=== PATIENT | female | born 1950 | race African-American/Black ===

== ENCOUNTER 2016-11-27 15:19 | Inpatient (IN) | payer MEDICARE, MEDICAID ==
[~2016-11-27] VITALS: Ht 165.1 cm; Wt 83.6 kg
--- NOTE | 2016-11-27 15:00 | NUR ---
RECEIVED TO ROOM [address] AT THIS TIME [address] WALTERS'S OFFICE. BROUGHT UP FROM ADMISSIONS VIA WHEELCHAIR. PT IS ALERT AND ORIENTED X4. PAIN 8/10 GENERALIZED. PT ASSISTED INTO BED AND GOWN PUT ON PT. BED ALARM ON FOR FALL PRECAUTIONS. [place] CIGARETTES TAKEN FROM PT WITH HER PERMISSION AND PLACED IN CASSETTE WITH PT MANAGER STRATEGIC PARTNERSHIPS THEM. PERSONAL BELONGINGS IN PT'S CLOSET SHE REFUSES TO HAVE THEM SENT TO THE [facility]. ID, ALLERGY AND FALL BAND PLACED ON PT WELL NON SKID SOCKS. PROVIDED PT WITH CREAM OF CHICKEN SOUP, SALTINE CRACKERS AND LEMON COUSHATTA SODA. PT STATES MED LIST HASN'T CHANGED SINCE LAST ADMISSION AND SHE DOESN'T KNOW WHEN SHE HAS HAD HER MEDS OR EATEN LAST. SAYS SHE LIVES ALONE AND DOESN'T HAVE HELP. SHE IS VERY WEAK AND UNABLE TO MAKE HER OWN MEALS OR ADMINISTER MEDS PER PT. CALL LIGHT IN REACH, ORIENTED TO ROOM, DOOR OPEN, SRX2 AND BED IN LOWEST POSITION AND LOCKED. WILL CONTINUE WITH PLAN OF CARE.
[~2016-11-27 15:19] MED LIST: AMITIZA24 MCG PO; BUTALB-APAP-CA1 EACH PO; BYSTOLIC5 MG PO; CATAPRES0.2 MG PO; COLACE100 MG PO; HALCION0.25 MG PO; HYDROCHLOROTH12.5 M1 PO; HYDROCODONE-APA1 TAB PO; KLONOPIN0.5 MG PO; LISINOPRIL10 MG PO; NICODERM C1 PATCH .2 TRANSDERM; OXYCONTIN10 MG PO; ROBITUSSIN AC (10 M1 PO; TESSALON PERLE100 MG PO; TYLENOL W/CODEI1 TAB PO; ULTRAM50 MG PO
--- NOTE | 2016-11-27 16:50 | NUR ---
20 GAUGE IV SITED TO LEFT FOREARM X1 ATTEMPT. FLUSHES EASY WITH BRISK BLOOD RETURN PRESENT. SECURED WITH TAPE. WELL TOLERATED.
[2016-11-27 17:06] LABS: MCH 31.3 pg (26.0-34.0); MCHC 31.5 g/dL (31.0-37.0); MCV 99.4 fL (80.0-100.0); MEAN PLATELET VOLUME 10.5 fL (7.4-10.4); RDW 21.3 % (11.5-14.5)
[2016-11-27 17:29] VITALS: BP 149/87
[2016-11-27 17:31] LABS: ANION GAP 9.6 mmol/L (8-16); BILIRUBIN - TOTAL 0.28 mg/dL (0.2-1.3); CARBON DIOXIDE 28.4 mmol/L (21.0-32.0); CREATININE - SERUM 1.5 mg/dL (0.6-1.3); MAGNESIUM - SERUM 1.8 mg/dL (1.8-2.4)
[2016-11-27 18:01] LABS: HEMATOCRIT 16.2 % (36.0-48.0); HEMOGLOBIN 5.1 g/dL (12-16); PLATELET COUNT 27 10x3/uL (130-400); RBC 1.63 10x6/uL (4.00-5.40)
--- NOTE | 2016-11-27 18:30 | NUR ---
SUPPOSITORY ADMINISTERED AT THIS TIME. BRIGHT RED BLOOD NOTED UPON POST ADMINISTRATION. FELT THAT PT DID HAVE HEMMORHOIDS INSIDE OF RECTUM AND PT STATED THAT SHE EXPERIENCES THEM OFTEN. DR HANNA'S ANSWERING SERVICE PAGED, [phone].
--- NOTE | 2016-11-27 18:35 | NUR ---
SPOKE WITH DEVORA RN, DR HANNA'S NURSE ABOUT CRITICAL LABS AND BLOOD PER RECTUM. SHE STATED SHE WOULD LET HIM KNOW. CRITICAL LAB SHEET FILLED OUT AND PLACED IN CHART AND A COPY IN CRITICAL LAB BOOK.
[2016-11-27 18:36] LABS: LYMPHOCYTES 52 % (15-50); MONOCYTES 2 % (2-11); NEUTROPHILS 46 % (40-80); PLATELET ESTIMATE DECREASED; ROULEAUX 1+
[2016-11-27 18:42] VITALS: BP 149/87; BMI 22.5
--- NOTE | 2016-11-27 20:00 | NUR ---
PATIENT PACING AROUND ROOM AND INTO REED. SHE IS AWAKE AND ALERT BUT SEEMS TO BE DISORIENTED TO SITUATION. SHE IS C/O PAIN AT AN 8/10. RR EVEN AND UNLABORED. 0 S/S OF DISTRESS. IV TO LEFT FA PATENT WITH NO REDNESS OR SWELLING. HAVE ASSISTED PATIENT BACK TO BED MULTIPLE TIMES AND EXPLAINED TO HER TO NOT GET UP ALONE BUT SHE CONTINUES TO GET UP WITHOUT ASSISTANCE. B/A ON. WILL CONTINUE TO MONITOR.
[2016-11-27 21:00] VITALS: BP 167/87
--- NOTE | 2016-11-27 22:00 | NUR ---
DR. HANNA IN ROOM SPEAKING WITH PATIENT. HE IS ATTEMPTING TO EXPLAIN TO HER THAT HER ILLNESS IS TERMINAL AND THAT SHE NEEDS TO BE ON HOSPICE, BUT SHE KEEPS CHANGING THE SUBJECT AND ACTING THOUGH SHE DOESN'T COMPREHEND. HE HAS ORDERED 2 UNITS OF BLOOD BUT SHE IS REFUSING. HE ASKED HER IF SHE WOULD LET US TRANSFUSE THEM IN THE MORNING AND SHE SAID "MAYBE." WILL ATTEMPT TO TRANSFUSE AT [address]AN[address]. NIGHTTIME MEDS GIVEN. ZOFRAN GIVEN FOR NAUSEA. NORCO GIVEN FOR PAIN. KLONOPIN GIVEN FOR ANXIETY. ATTEMPTED TO ADMINISTER FLEETS ENEMA PER ORDER BY DR. HANNA, BUT PATIENT STATED SHE WISHED TO DO IT HERSELF. NO OTHER NEEDS AT THIS TIME.
--- NOTE | 2016-11-28 | NUR ---
LAB ATTEMPTING TO DRAW TYPE AND CROSS, BUT PATIENT STATES SHE IS "NOT GETTING BLOOD TONIGHT AND DOES NOT WANT HER BLOD DRAWN TONIGHT." LAB WILL RETRY IN AM.
--- NOTE | 2016-11-28 04:00 | NUR ---
PATIENT SLEEPING WITH NO DISTRESS NOTED. CALL LIGHT WITHIN REACH.
--- NOTE | 2016-11-28 05:12 | NUR ---
PATIENT REFUSING AM LABS.
--- NOTE | 2016-11-28 07:54 | NUR ---
SCHEDULED MEDICAITONS ADMINISTERED AT THIS TIME WELL PRN ZOFRAN 4MG IV FOR PT COMPLAINTS OF NAUSEA. IV TO LEFT FOREARM PATENT. ALERT AND ORIENTED X3. ASSESSMENT PERFORMED PER FLOWSHEET. PT CONTINUES TO REFUSE SCD'S AND ISP. CALL LIGHT IN REACH, SRX2 AND BED IN LOWEST POSITION AND LOCKED. WILL CONTINUE WITH PLAN OF CARE.
[2016-11-28 09:08] VITALS: BP 176/89
--- NOTE | 2016-11-28 10:41 | HP ---
PATIENT: DAVID LEOS MEDICAL RECORD: [id number] ACCOUNT: [id number] LOCATION:[facility] : 49 ADMISSION DATE: 11/27/16 HISTORY AND PHYSICAL EXAMINATION HISTORY OF PRESENT ILLNESS: Ms. Leos is a 66-year-old white female, patient of Dr. Swenson who was admitted from the office today for pain control and dehydration. She states she has not had a drink. She has a history of ____ with Dr. Barajas. She has refused treatment in the past. She was found to be severely anemic. She is admitted to see Dr. Swenson. PAST MEDICAL HISTORY: ____, diabetes and hypertension. PAST SURGICAL HISTORY: Includes a hysterectomy. ALLERGIES OR INTOLERANCES: INCLUDE PENICILLIN, AMLODIPINE, CAFFEINE, DICLOFENAC, NAPROSYN, PREDNISONE AND TEMAZEPAM. HOME MEDICATIONS: Include clonazepam 0.5 mg t.i.d., lisinopril 20 daily, clonidine p.r.n., Halcion 0.25 at bedtime, [place] 10, benzonatate 100 t.i.d., Amitiza 24 b.i.d., HCTZ 25 daily, Fioricet p.r.n. and Bystolic 10 mg a day. FAMILY HISTORY: Noncontributory. SOCIAL HISTORY: She is a smoker, also uses marijuana. She does not drink. REVIEW OF SYSTEMS: Complaint of generalized weakness, decreased appetite and abdominal pain. She has had decreased bowel movements and constipation. She has had decreased urine output. PHYSICAL EXAMINATION: GENERAL: She is pleasant and alert. HEENT: Unremarkable. HEART: Regular. LUNGS: Clear. ABDOMEN: With generalized tenderness, no edema. IMPRESSION: Chronic lymphocytic leukemia, acute myeloid leukemia, diabetes and hypertension. PLAN: Admit, pain control, consult Dr. Barajas and transfuse. See orders for plan. TRANSINT:[id number] Voice Confirmation ID: [id number] DOCUMENT ID: [id number] HISTORY AND PHYSICAL [id number] DAVID LEOS SAMY ESPINOSA DO at 1041 CC: [id number] DICTATION DATE: 11/27/161946 LABORATORY ANIMAL FACILITY SUPERVISOR: 11/27/162151 ADM IN [place] [address] [place] [address]
--- NOTE | 2016-11-28 10:45 | NUR ---
PT REQUESTING PAIN MEDICATION. EXPLAINED THAT IT WAS NOT TIME FOR THE NORCO, BUT SHE DID HAVE DEMEROL AVAILABLE. PT DENIED WANTING DEMEROL AT THIS TIME. CALL LIGHT IN REACH. WILL CONTINUE WITH PLAN OF CARE.
[2016-11-28 11:00] VITALS: Ht 165.1 cm; Wt 83.6 kg
[2016-11-28 12:30] VITALS: BP 155/77
--- NOTE | 2016-11-28 13:02 | NUR ---
PRN NORCO ADMINISTERED AT THIS TIME. LINENS BEING CHANGED BY BRICK CLEANER AT THIS TIME. CALL LIGHT IN REACH, WILL CONTINUE WITH PLAN OF CARE.
[2016-11-28 16:19] VITALS: BP 159/72
--- NOTE | 2016-11-28 19:00 | NUR ---
PATIENT RESTING ON LEFT SIDE. HOB 30 DEGREES. AROUSES TO VOICE. RR EVEN AND UNLABORED. 0 S/S OF DISTRESS. STATES PAIN IS AN 8/10. IV TO LEFT FA PATENT WITH NO REDNESS OR SWELLING. TELEMETRY ON. SRX2. BED LOW. CALL LIGHT WITHIN REACH.
[2016-11-28 21:00] VITALS: BP 168/88
--- NOTE | 2016-11-28 22:45 | NUR ---
ASSESSMENT COMPLETE. NIGHTTIME MEDS GIVEN. NORCO GIVEN FOR PAIN. WILL REASSESS. NO OTHER NEEDS AT THIS TIME.
--- NOTE | 2016-11-28 23:45 | NUR ---
ABOUT TO BEGIN INFUSION OF 1ST UNIT PRBC BUT PREINFUSION TEMP IT 103.1. PAGED DR. HANNA.
[2016-11-29] VITALS (62 sets, daily range): BP systolic 81–174; BP diastolic 51–109
--- NOTE | 2016-11-29 00:15 | NUR ---
STILL HAVE NOT RECEIVED CALL BACK FROM DR. HANNA. RETOOK PATIENT'S TEMP. IT IS NOW 98.3. SHE IS VERY AGITATED THRASHING AROUND THE BED. SHE SAYS SHE "CAN'T CALM DOWN." SHE IS PERSPIRING HEAVILY. RR ARE 45 AND SHE SOUNDS VERY WET. NOTIFIED RESPIRATORY WHO CALLED ICU NURSE.
--- NOTE | 2016-11-29 00:50 | NUR ---
CONSULT CALLED TO DR. QUINTANILLA, NEW ORDERS RECIEVED,
--- NOTE | 2016-11-29 00:55 | NUR ---
PT ARRIVED TO ICU VIA HOSPITAL BED. TEMP 97.8. RR 45. HR 122. BP 163/104. PT RESTLESS. TACHYPENIC; RHONCHI NOTED BILATERALLY IN UPPER LOBES; DIMINSHED BILATERALLY IN LOWER LOBES. SCD PLACED. ON NON-REBREATHER AT 15L. CONFUSED TO TIME. AAO X3. STAGE TWO PRESSURE ULCER ON BUTTOCKS. SCABS/SORES ON BACK.
--- NOTE | 2016-11-29 01:15 | NUR ---
PT RESTLESS AND AGITATED. PULLING AT LINES. PT PULLING NON REBREATHER MASK OFF REPEATEDLY. UNABLE TO COMPREHEND THE IMPORTANCE OF KEEPING LINES INTACT.
--- NOTE | 2016-11-29 01:20 | NUR ---
ATTEMPTED TO CONTACT SON AND SISTER. NO ANSWER.
--- NOTE | 2016-11-29 01:38 | NUR ---
DR REHMAN AT BEDSIDE. PT INTUBATED; SIZE 7.5 AND MEASURES 23 AT THE TEETH. HR 125. BP 138/94.
--- NOTE | 2016-11-29 01:58 | NUR ---
20 GAUGE PIV STARTED IN LEFT FOREARM.
--- NOTE | 2016-11-29 02:10 | NUR ---
20 GAUGE PIV STARTED IN RIGHT FOREARM. OGT PLACED; ASCULTATED PATENTENCY.
--- NOTE | 2016-11-29 02:16 | NUR ---
CASH CATH PLACED. SECURED TO LEFT LEG. URINE CULTURE AND UA COLLECTED. CLEAR YELLOW URINE IN COLLECTION BAG.
--- NOTE | 2016-11-29 02:30 | NUR ---
EMERGENCY BLOOD TRANSFUSION CONSENT OBTAIN FROM DR. MAYES.
--- NOTE | 2016-11-29 02:45 | NUR ---
PRBC STARTED INFUSING.
--- NOTE | 2016-11-29 03:30 | NUR ---
REASSESSMENT COMPLETE. BLOOD INFUSING. PT SEDATED ON VENT. DIFFICULTY WITH PT REMAINING CALM WITH SEDATION. 70MCG/KG/MIN DIPROVAN INFUSING. ATIVAN GIVEN PER ORDERS.
[2016-11-29 04:07] LABS: APPEARANCE HAZY (CLEAR); BILIRUBIN NEGATIVE (NEGATIVE); COLOR YELLOW (YELLOW); GLUCOSE NEGATIVE (NEGATIVE); KETONE NEGATIVE (NEGATIVE); LEUKOCYTE ESTERASE NEGATIVE (NEGATIVE); NITRITE NEGATIVE (NEGATIVE); PROTEIN 2+ mg/dL (NEGATIVE); SPECIFIC GRAVITY 1.015 (1.005-1.020); UROBILINOGEN NORMAL (NORMAL)
[2016-11-29 04:10] LABS: AMORPHOUS SEDIMENT >1+ /lpf (NONE SEEN); BACTERIA MANY /hpf (NONE SEEN); EPITHELIAL CELLS 0-5 /hpf (0-5); GRANULAR CAST 0-5 /lpf (NONE SEEN)
--- NOTE | 2016-11-29 05:30 | NUR ---
PT 02 SAT DECREASED TO 45%, 100% GIVEN AND SATS DID NOT INCREASE. PT BAGGED O2 SAT INCREASED TO 96%. PT PLACED BACK ON MECHANICAL VENT.
--- NOTE | 2016-11-29 07:05 | NUR ---
OGT PLACEMENT VERIFICATION VIA AUSCULATION
[2016-11-29 07:32] LABS: BASOPHILS 2.6 % (0.0-2.0); EOSINOPHILS 0 % (0-7); LYMPHOCYTES 26.3 % (15-50); MCH 29.9 pg (26.0-34.0); MCV 99.5 fL (80.0-100.0); MEAN PLATELET VOLUME 12.2 fL (7.4-10.4); MONOCYTES 2.6 % (2-11); NEUTROPHILS 68.5 % (40-80); RDW 19.6 % (11.5-14.5)
[2016-11-29 07:33] LABS: RBC 2.14 10x6/uL (4.00-5.40)
[2016-11-29 07:34] LABS: HEMATOCRIT 21.3 % (36.0-48.0)
[2016-11-29 07:35] LABS: HEMOGLOBIN 6.4 g/dL (12-16); PLATELET COUNT 18 10x3/uL (130-400); WBC 0.4 10x3/uL (4.8-10.8)
[2016-11-29 07:46] LABS: BILIRUBIN - TOTAL 0.64 mg/dL (0.2-1.3); CALCIUM 9.2 mg/dL (8.5-10.1); CARBON DIOXIDE 18.5 mmol/L (21.0-32.0); CREATININE - SERUM 2.3 mg/dL (0.6-1.3); PROTEIN - SERUM 11.3 g/dL (6.4-8.2)
[2016-11-29 07:47] LABS: ANION GAP 23.5 mmol/L (8-16)
--- NOTE | 2016-11-29 08:05 | NUR ---
PAGED DR NAVA AT THIS TIME.
--- NOTE | 2016-11-29 08:16 | NUR ---
SPOKE WITH DR HANNA TO NOTIFY OF CRITICAL WBC 0.4, H&H 6.4/21.3, AND PLATELET LEVEL OF 18. NOTED NO NEW ORDERS EXCEPT TO SPEAK WITH CASE MANAGEMENT AND TO TRY TO GET IN CONTACT WITH PTS SON TO ALLOW THE SON TO DECIDE A DIRECTION TO TAKE IN PT CARE. AT THIS TIME PT IS A FULL CODE. THERE IS NOT A NUMBER FOR THE SON IN COMPUTER, ONLY A NUMBER FOR PT SISTER VARUN TOLLIVER WHO HAS BEEN CALLED AND VOICEMAILS LEFT LAST SHIFT TO NOTIFY OF PT CHANGES. ALSO AT THIS TIME ATTEMPTED TO FIND PT SONS NUMBER IN PT CELL PHONE BY THIS NURSE OBSERVED BY CASE MANAGEMENT, DID NOT FIND NUMBER; ALSO AT THIS TIME CELL PHONE NOTED TO HAVE A DEATTACHED KEYBOARD. WILL CONTINUE TO ATTEMPT TO CONTACT FAMILY.
--- NOTE | 2016-11-29 08:45 | NUR ---
PATIENT IS ON THE VENT AND UNABLE TO ANSWER QUESTIONS. I HAVE ATTEMPTED TO CONTACT HER SISTER, LIDYA TOLLIVER. THE NUMBER ON FACE SHEET FOR SISTER IS NOT A WORKING NUMBER. ON PREVIOUS ADMIT PHONE NUMBER FOR HER SISTER IS [phone]. I HAVE PHONED THAT NUMBER AND STATES LEAVE MESSAGE FOR LIDYA. I LEFT A MESSAGE TO CONTACT ME IN ICU IN REGARDS TO HER SISTER, DAVID LEOS. I DO NOT HAVE A PHONE NUMBER FOR HER SON, HOWEVER, THE CHARGE NURSE ON CONSULTING PRACTICE DIRECTOR STATES SHE HAD A NUMBER AND LEFT MESSAGES FOR SISTER AND SON. WE HAVE NOT RECEIVED A RETURN T/C AT THIS TIME. CM TO FOLLOW.
--- NOTE | 2016-11-29 10:42 | NUR ---
POTASSIUM LEVEL NOTED AT 3.0, REPLACEMENT ADMIN VIA ELECTROLYTE PROTOCOL, REDRAW SET AT 1400. WILL CONTINUE PLAN OF CARE.
--- NOTE | 2016-11-29 10:43 | NUR ---
NUTRITION MONITORING & EVAL CHART REVIEWED. PT NOW IN ICU ON VENT. WILL START TUBE FEEDS PER MD VOICE ORDER. DIPRIVAN @ 18 CC/HR PROVIDING 475 KCAL PER DAY. 1)PULMOCARE @ 10 CC/HR 2)INCREASE 10 CC/HR Q 8 HOURS TOLERATED TO GOAL RATE 35 CC/HR. 3)60 CC H2O FLUSH Q [address] FOLLOWING
--- NOTE | 2016-11-29 10:56 | NUR ---
PATIENT IS ON THE VENT AND SEDATED. SHE IS NOT ABLE TO ANSWER QUESTIONS AT THIS TIME. WE HAVE ATTEMPTED TO CONTACT HER FAMILY. I PHONED HER SISTER, LIDYA TOLLIVER AND I LEFT A MESSAGE FOR HER TO CALL ME. AT THIS TIME I HAVE NOT HEARD BACK FROM FAMILY.
--- NOTE | 2016-11-29 13:51 | NUR ---
TOTAL BED CHANGE PROVIDED AT THIS TIME. NOTED SOME DARK RED BLOOD FROM PT MOUTH. SUCTIONING PROVIDED, NOTED 15ML BLOOD FROM SUCTION. CHIP AND CASH CARE PROVIDED VIA TOTAL ASSIST X 2. WILL CONTINUE PLAN OF CARE.
--- NOTE | 2016-11-29 13:52 | NUR ---
BP AT THIS TIME 84/55 WITH MAP OF 67. PT HAS NOREPINEPHERINE ORDERED. NOREPINEPHERINE STARTED AT 1MCG AT THIS TIME. WILL CONTINUE TO OBSERVE.
--- NOTE | 2016-11-29 14:33 | NUR ---
NOREPINEPHERINE INCREASED TO 1.5 MCG AT THIS TIME FOR A SYSTOLIC BP OF 88. WILL CONTINUE TO OBSERVE.
--- NOTE | 2016-11-29 15:27 | NUR ---
WE SPOKE WITH PATIENT'S SISTER VARUN TOLLIVER. [phone]. SHE STATES THAT PATIENT'S SON IS NOT AVAILABLE TO COME TALK WITH DR. HANNA. SHE STATES THAT JAZMÍN IS IN THE [facility] AND WILL BE THERE FOR THE NEXT 3 MONTHS. SHE STATES HE IS IN SOME TYPE OF PROGRAM THERE. SHE IS GOING TO CONTACT THE [facility] TO INQUIRE IF HE WOULD BE ABLE TO COME TO THE HOSPITAL TO MEET WITH DR. HANNA OR IF HE WOULD BE ALLOWED TO TALK BY PHONE WITH HIM. SHE STATES SHE WILL CHECK INTO THIS AND WILL CALL US BACK. I TOLD HER THAT IF WE NEED TO PROVIDE INFORMATION TO THEM WE WOULD BE AVAILABLE AND SHE CAN CALL ICU AND ASK FOR HER NURSE. CM TO FOLLOW.
--- NOTE | 2016-11-29 16:05 | NUR ---
SUCTIONNG PROVIDED AT THIS TIME, NOTED 20ML DARK BLOODY FLUID INTO SUCTION CONTAINER VIA ORAL SUCTIONING. WILL CONTINUE TO OBSERVE.
--- NOTE | 2016-11-29 16:11 | NUR ---
NOTED POTASSIUM LEVEL OF 3.0 AFTER REDRAW, POTASSIUM REPLACEMENT PROVIDED AT THIS TIME. WILL PLACE REDRAW TIME TO 1999. WILL CONTINUE PLAN OF CARE.
--- NOTE | 2016-11-29 16:28 | NUR ---
SPOKE WITH PT SISTER AT THIS TIME, PT SISTER STATED THAT PT SONS NAME IS BRIANNEJERRY DENTONSULEIMAN AND HE IS IN LONG TERM AT THE [facility]. WILL CONTACT SON.
--- NOTE | 2016-11-29 17:00 | NUR ---
DR HANNA SPOKE WITH PT SON MIGUE LEOS AT THIS TIME IN ORDER TO RECIEVE CODE STATUS DIRECTIONS. PT SON STATED HE WANTED TO CALL PT SISTER BEFORE MAKING DECISION THEN HE WOULD CALL BACK TO NOTIFY OF DECISION.
--- NOTE | 2016-11-29 17:52 | NUR ---
CHARGE NURSE NOTED TO HAVE SPOKE WITH PT SON SAMANTA. PT SON STATED HE COULD NOT GIVE AN ANSWER ON PT CODE STATUS AND STATED HE "CAN SEE HER GETTING BETTER." PT IS A FULL CODE AT THIS CURRENT TIME. CALLED DR HANNA TO NOTIFY AND RECIEVE FURTHER ORDERS. DID NOT RECIEVE ANSWER. WILL ATTEMPT TO CALL AGAIN.
--- NOTE | 2016-11-29 18:08 | NUR ---
SPOKE WITH DR HANNA TO NOTIFY THAT PT SON DID NOT MAKE A DECISION ON CODE STATUS. PT IS FULL CODE. NOTED ORDER TO ADMIN 2U PRBC AT THIS TIME. WILL PLACE ORDERS.
--- NOTE | 2016-11-29 18:20 | NUR ---
NOREPINEPHERINE TITRATED PER BP STATUS AND MAP PER ORDERS.
--- NOTE | 2016-11-29 19:00 | NUR ---
1900: Pt ST 101 with SBP 80's. Remains on Levophed at 4 mcg/min. Pt remains on Vent with RR 23x with SPO2 93%. Pt unresponsive at this time and remains sedated with Diprivan gtt.
--- NOTE | 2016-11-29 20:00 | NUR ---
2000: Called by [facility] and notified that pt's son is prisoner at that facility. Spoke with son Fabien Crane @ length. Discussed pt condition, care, and possible outcomes including . Young verbalized understanding and requests pt to be full code at this time. Young states that his Aunt Rafael Stratton should arrive shortly and asked to review all info with her as well.
--- NOTE | 2016-11-29 21:00 | NUR ---
2100: Pt son called back to clarify code status and discuss different options including terminal extubatin, full code, and med code. Further educated pt son on all measures and son again confirms that he wishes mother to be full code at this time, but wants to discuss with Aunt.
--- NOTE | 2016-11-29 21:15 | NUR ---
2114: Pt sister her, Rafael Stratton [phone], update provided and discussed pt condition at length. Pt belonging sent home with Aunt.
--- NOTE | 2016-11-29 22:00 | NUR ---
2200: Pt continues with SBP 80-90 mmHG. Levophed unchanged at 4 mcg/min. After discussing with family PRBC started to right FA PIV with blood tubing and NS as per [facility] policy.
[2016-11-30] VITALS (82 sets, daily range): BP systolic 93–116; BP diastolic 54–72
--- NOTE | 2016-11-30 | NUR ---
0000: No change in pt RESP/CV/NV status. No change in IVF/UOP at this time. Pt remains on Vent with RR 23x with SPO2 94%.
--- NOTE | 2016-11-30 03:00 | NUR ---
0300: ABGs done and reviewed. Decreased Vent set RR to 12 and FIO2 decreased to 40% at this time. PRBCs continue to infuse via right arm PIV. No change in IVF/UOP at this time. Pt remains SR/ST 90-100's with SBP 90's at this time.
--- NOTE | 2016-11-30 05:00 | NUR ---
0500: OGT position confirmed with 30 cc air bolus and auscultation. Pt OGT emptied approx 100cc clear fluid per sx. Pulmocare started via OGT at 10 cc /hr with 60cc flush q4 hr as per orders.
[2016-11-30 05:55] LABS: BASOPHILS 2.6 % (0.0-2.0); EOSINOPHILS 0.6 % (0-7); IMMATURE GRANULOCYTES 2.1 % (0-5); MCH 29.9 pg (26.0-34.0); MCHC 32.3 g/dL (31.0-37.0); MEAN PLATELET VOLUME 11.6 fL (7.4-10.4); MONOCYTES 0.7 % (2-11); RBC 2.14 10x6/uL (4.00-5.40); RDW 18.1 % (11.5-14.5)
[2016-11-30 05:58] LABS: WBC 5.3 10x3/uL (4.8-10.8)
[2016-11-30 05:59] LABS: HEMATOCRIT 19.8 % (36.0-48.0); HEMOGLOBIN 6.4 g/dL (12-16); MCV 92.5 fL (80.0-100.0); PLATELET COUNT 14 10x3/uL (130-400)
[2016-11-30 06:25] LABS: BILIRUBIN - TOTAL 2.65 mg/dL (0.2-1.3); CALCIUM 8.1 mg/dL (8.5-10.1); MAGNESIUM - SERUM 1.2 mg/dL (1.8-2.4); PHOSPHOROUS 4.7 mg/dL (2.5-4.9); PROTEIN - SERUM 10.6 g/dL (6.4-8.2); VANCOMYCIN - RANDOM 13.4 ug/mL (10.0-20.0)
[2016-11-30 06:26] LABS: ANION GAP 21.4 mmol/L (8-16); CARBON DIOXIDE 23.6 mmol/L (21.0-32.0); CREATININE - SERUM 3.3 mg/dL (0.6-1.3)
--- NOTE | 2016-11-30 06:45 | NUR ---
0645: Pt lab returned and called to Dr. Barajas's nurse. Nurse to call MD and will advise.
--- NOTE | 2016-11-30 08:21 | NUR ---
SPOKE WITH DR HANNA, UPDATE GIVEN. NOTED NO NEW ORDERS. PHYSICIAN IS AWARE OF LAB LEVELS. WILL CONTINUE PLAN OF CARE.
--- NOTE | 2016-11-30 10:50 | NUR ---
RESIDUAL NOTED 200ML. DR YANES NOTIFIED. NOTED ORDER TO HOLD OGT FEEDINGS FOR 12 HOURS. ALSO PT HAS HYPOACTIVE BOWEL SOUNDS TO ALL QUADRANTS. KUB ORDERED BY DR YANES. WILL CONTINUE PLAN OF CARE.
--- NOTE | 2016-11-30 13:09 | NUR ---
SPOKE WITH PT SISTER. UPDATE GIVEN. NOTED PT SISTER STATED SHE AND THE PT SON STILL DO NOT KNOW WHAT THEIR WISHES ARE FAR A CODE DECISION FOR PT. DR HANNA NOTIFIED. WILL NOTIFY CASE MANAGEMENT.
--- NOTE | 2016-11-30 14:49 | NUR ---
PT TURNED Q2H. NO ACUTE DISTRESS NOTED. NOTED PT HAS ORDER FOR 2 U PRBC AND 2 U PLATELET APHERESIS. WILL INITIATE SHORTLY.
--- NOTE | 2016-11-30 14:51 | NUR ---
SPOKE WITH SADAF AT [facility]. REFERENCE NUMBER [id number]. COORDINATOR PAGED OUT. AWAITING RETURN CALL.
--- NOTE | 2016-11-30 15:14 | NUR ---
RETURN CALL FROM [facility] COORDINATOR. RULE OUT FOR HX OF CANCER. REQUEST TO "CALL BACK WITH CARDIAC "
--- NOTE | 2016-11-30 16:45 | NUR ---
FIRST UNIT OF PLATELET APHERESIS INITIATED AT THIS TIME. NO ACUTE DISTRESS NOTED. VSS. WILL CONTINUE TO OBSERVE.
--- NOTE | 2016-11-30 16:45 | NUR ---
SECOND UNIT OF PLATELET APHERESIS INITIATED AT THIS TIME. NO ACUTE DISTRESS NOTED. VSS. WILL CONTINUE TO OBSERVE.
--- NOTE | 2016-11-30 16:59 | NUR ---
RECEIVED TELEPHONE CALL FROM PRIMARY NURSE REGARDING CODE STATUS AND ETHICS CONSULT. DR QUINTANILLA AND DR CORONADO ALSO SPOKE WITH THE CM. DR HANNA HAD DOCUMENTED PATIENT'S PROGNOSIS W/ ADVANCED DISEASE AND MULTIPLE SYSTEMS FAILING. PATIENT KNOWN FROM [facility]. SHE HAD EXCLUDED HER SON AND SISTER FROM BEING INVOLVED IN HER CARE. SHE HAD NOT SHARED ANY INFORMATION REGARDING HER ILLNESS AND THE SEVERITY OR HER DECISION TO REFUSE THERAPY. SHE DID NOT WANT HER SISTER INVOLVED IN HER DECISION MAKING. THE PATIENT HAD DECLINED TREATMENT W/ DR HANNA FOR SOME MONTHS. HER FAMILY HAD VISITED ON SITE AND REQUESTED [facility] TRANSFERE. [facility] HAD DECLINED PATIENT'S ADMISSION. THIS WAS DURING [facility]. PATIENT HAD HOSPICE REFERRAL W/ [facility]. OUTCOME NOT DOCUMENTED. THE PATIENT WAS DISCHARGED TO HOME W/ [facility]. CM CALLED THE WEEKEND NURSE TO ASCERTAIN HOW SHE WAS MANAGING AT HOME. EZEQUIEL Kirk RETURNED THE CALL. THE PATIENT DID NOT RETURN THE TELEPHONE CALL FROM THE NURSES. SHE DID NOT ANSWER THE DOOR WHEN THEY VISITED. SHE DID NOT KEEP HER APPT W/ DR HANNA. CM DISCUSSED PATIENT'S DECISIONS. ASK SISTER IF SHE FELT THE PATIENT WOULD WANT FULL CODE AND CONTINED VENT AND PRESSOR SUPPORT. ADVISED THE PATIENT HAD VERY POOR PROGNOSIS. THE SISTER STATED SHE DID NOT KNOW WHAT TO DO REGARDING A . SHE DID NOT THINK THE PATIENT HAD FUNDS FOR A BURIAL. GAVE HER 2 LOCAL HOMES THAT HAVE ASSISTED FAMILY WITH LIMITED INCOME UNDER THESE CIRCUMSTANCES. SISTER IS CONSIDERING DNR STATUS. SHE PLANS TO S/W THE SON. SHE ALSO PLANS TO S/W PROVIDERS THIS WEEKEND IF POSSIBLE. SHE STATES SHE LOST HER TO CANCER 3 YRS AGO. SHE WATCHED HIM DECLINE. CM ADVISED I WAS AVAILABLE THIS WEEKEND IF NEEDED. CM SPOKE W/ NURSING PROJECT LANDSCAPE ARCHITECT EARLIER ETHICS CONSULT. CM ALSO RECEIVED TELEPHONE CALL FROM MAGED WALLACE REGARDING ETHICS CONSULT. WILL CONTINUE TO FOLLOW TO ASSIST IS APPROPRAITE.
--- NOTE | 2016-11-30 19:00 | NUR ---
1900: Pt SBP 100's. Continue to titrate Levophed as per orders.
--- NOTE | 2016-11-30 20:00 | NUR ---
2000: Pt OGT position confirmed with 30 cc air bolus and auscultation. Returned to LIS with light green liquid return. Lacey care done and placed gravity drainage. SCDs and Restraints removed for skin assessment. Oral care done per RT and RN. Large amount of clear sx obtained. All alarms on and intact. Side rails up x3, and bed alarm on and audible.
--- NOTE | 2016-11-30 21:45 | NUR ---
2145: PRBC started with NS and blood tubing via 20 G right arm PIV. Blood checked x2 RNs.
--- NOTE | 2016-11-30 23:00 | NUR ---
2300: Pt SR 88 with SBP 111. No change in IVF or UOP at this time. Pt remains on vent with [id number] with SPO2 98%. NGT remains to LIS at this time.
[2016-12-01] VITALS (28 sets, daily range): BP systolic 108–165; BP diastolic 43–88
--- NOTE | 2016-12-01 00:40 | NUR ---
0040: 2nd unit of PRBC started at this time with NS and blood tubing via right arm PIV.
--- NOTE | 2016-12-01 05:00 | NUR ---
0500: Pt oral care done and pt repositioned for comfort with extrem off bed with pillow supports. No change in IVF or UOP. PRBC completed and pt SBP 110. Levophed remains off at this time.
[2016-12-01 06:54] LABS: BASOPHILS 0 % (0.0-2.0); EOSINOPHILS 0 % (0-7); HEMATOCRIT 21.4 % (36.0-48.0); IMMATURE GRANULOCYTES 4.5 % (0-5); LYMPHOCYTES 23.2 % (15-50); MCH 31.2 pg (26.0-34.0); MCHC 34.6 g/dL (31.0-37.0); MEAN PLATELET VOLUME 10.6 fL (7.4-10.4); NEUTROPHILS 64.3 % (40-80); RBC 2.37 10x6/uL (4.00-5.40); RDW 17.2 % (11.5-14.5)
[2016-12-01 06:55] LABS: MCV 90.3 fL (80.0-100.0); PLATELET COUNT 53 10x3/uL (130-400)
[2016-12-01 06:56] LABS: HEMOGLOBIN 7.4 g/dL (12-16); WBC 1.1 10x3/uL (4.8-10.8)
[2016-12-01 07:42] LABS: ALBUMIN 1.1 g/dL (3.4-5.0); BILIRUBIN - TOTAL 4.06 mg/dL (0.2-1.3); CALCIUM 7.8 mg/dL (8.5-10.1); MAGNESIUM - SERUM 1.2 mg/dL (1.8-2.4); PROTEIN - SERUM 10.6 g/dL (6.4-8.2); VANCOMYCIN - RANDOM 20.3 ug/mL (10.0-20.0)
[2016-12-01 07:43] LABS: CARBON DIOXIDE 30.8 mmol/L (21.0-32.0); POTASSIUM - SERUM 2.8 mmol/L (3.5-5.1)
--- NOTE | 2016-12-01 08:03 | NUR ---
LYING IN BED AT THIS TIME. TURNED Q2H. NO ACUTE DISTRESS NOTED. VSS. PT IS NOT ON NOREPINEPHERINE. SUCTIONING PROVIDED, NOTED THICK SECRETIONS. NO ACUTE DISTRESS NOTED. WILL CONTINUE TO OBSERVE.
--- NOTE | 2016-12-01 10:08 | NUR ---
TURN Q2H. NO ACUTE DISTRESS NOTED. PT STILL NOTED TO OPEN EYES AND LOOK AROUND AT TIMES. DOES NOT FOLLOW COMMANDS OR NOD/SHAKE HEAD FOR COMMMUNICATION. NO ACUTE DISTRESS NOTED. WILL CONTINUE PALN OF CARE.
--- NOTE | 2016-12-01 13:42 | NUR ---
LYING IN BED AT THIS TIME. TURN Q2H. NO ACUTE DISTRESS NOTED. SOME COUGHING NOTED AT TIMES. PT SUCTIONED, NOTED SPUTUM TO APPEAR CLEAR THICK WITH SOME BLOOD. VSS. WILL CONTINUE PLAN OF CARE.
--- NOTE | 2016-12-01 14:07 | NUR ---
BED BATH PROVIDED AT THIS TIME VIA TWO PERSON TOTAL ASSIST. PT NOTED TO NOT OPEN EYES OR MOVE ARMS OR LEGS DURING BEDBATH. VSS. TURN Q2H. NO ACUTE DISTRESS NOTED. WILLCONTINUE PLAN OF CARE.
--- NOTE | 2016-12-01 15:18 | NUR ---
PT SISTER AT BEDSIDE AT THIS TIME. UPDATE GIVEN. NO ACUTE DISTRESS NOTED. WILL CONTINUE TO OBSERVE.
[2016-12-01 15:52] LABS: CALCIUM 7.5 mg/dL (8.5-10.1); CARBON DIOXIDE 32.8 mmol/L (21.0-32.0); CREATININE - SERUM 2.8 mg/dL (0.6-1.3)
[2016-12-01 15:53] LABS: MAGNESIUM - SERUM 1.9 mg/dL (1.8-2.4); POTASSIUM - SERUM 3.8 mmol/L (3.5-5.1)
--- NOTE | 2016-12-01 18:24 | NUR ---
REPOSITIONING PROVIDED TO PT ALONG WITH SUCTIONING, NOTED THICK CLEAR SECRETIONS WITH SCANT AMOUNT OF BLOOD. NO ACUTE DISTRESS NOTED. FAMILY IN FAMILY ROOM SPEAKING WITH CASE MANAGEMENT AT THIS TIME. WILL CONTINUE TO OBSERVE.
--- NOTE | 2016-12-01 19:00 | NUR ---
RECEIVED PATIENT IN BED ON VENT, ASSESSMENT COMPLETE PER FLOWSHEET. PATIENT SEDATED, UNABLE TO ASSESS ORIENTATION. EYES PERRLA @ 4MM WITH BRISK RESPONSE, SCLERA IS WHITE. ETT/OGT 7/5 @ 23CM NOTED, PULMOCARE @ 10ML/HR ONGOING. S1/S2 NOTED WITH PATIENT NSR ON TELEMETRY, RYTHMIC AND REGULAR. PATIENT ON VENT 40% R-12, V-600, P-5, BREATHING IS REGULAR. ABDOMEN IS DISTENDED AND FIRM, BOWEL SOUNDS HYPOACTIVE X4. CASH SECURED IN PLACE, REBEKAH URINE NOTED IN COLLECTION BAG. BILATERAL WRIST RESTRAINTS IN USE, PASSIVE ROM ALL EXTREMITIES. ALL PULSES PALPABLE, CAP REFILL <3 SEC. L FA IV NOTED 20G, SEE FLOW SHEET FOR FLUIDS INFUSING. PATIENT RESPOSITIONED FOR COMFORT, ORAL CARE PROVIDED. ALL VITAL SIGNS STABLE AND WILL CONTINUE TO MONITOR.
--- NOTE | 2016-12-01 21:00 | NUR ---
NO VISITORS AT THIS TIME, PATIENT RESTING IN BED WITH EYES CLOSED ON VENT. PATIENT REPOSITIONED AND ORAL CARE PROVIDED, ALL VSS. WILL CONTINUE TO MONITOR.
--- NOTE | 2016-12-01 23:00 | NUR ---
REASSESSMENT COMPLETE PER FLOWSHEET, PATIENT SEDATED IN BED WITH EYES CLOSED ON VENT. CRACKLES/RALES NOTED BILATERAL UPPER WITH DIMINISHED LOWER LOBES, VENT SETTINGS UNCHANGED. RESIDUAL CHECKED AND 22ML ASPIRATED AND RETURNED. PATIENT REPOSITIONED FOR COMFORT, ORAL CARE PROVIDED. ALL VSS AND WILL CONTINUE TO MONITOR.
[2016-12-02] VITALS (25 sets, daily range): BP systolic 106–123; BP diastolic 43–83
--- NOTE | 2016-12-02 01:00 | NUR ---
PATIENT REPOSITIONED FOR COMFORT AND ORAL CARE PROVIDED. PATIENT RESTING IN BED WITH EYES CLOSED ON VENT, OXYGEN SAT IS 97%. ALL VSS AND WILL CONTINUE TO MONITOR.
--- NOTE | 2016-12-02 03:00 | NUR ---
REASSESSMENT COMPLETE PER FLOWSHEET, PATIENT RESTING IN BED WITH EYES CLOSED ON VENT. S1/S2 NOTED WITH PATIENT NSR ON TELEMETRY. VENT SETTINGS ARE UNCHANGED FROM PREVIOUS, CRACKLES NOTED BILATERAL UPPER WITH DIMINISHED LOWER. PATIENT REPOSITIONED FOR COMFORT AND ORAL CARE PROVIDED. NO OTHER NEEDS AT THIS TIME, ALL VSS AND WILL CONTINUE TO MONITOR.
[2016-12-02 04:05] LABS: BASOPHILS 1.2 % (0.0-2.0); EOSINOPHILS 1.2 % (0-7); HEMATOCRIT 21.6 % (36.0-48.0); LYMPHOCYTES 38.4 % (15-50); MCH 30.5 pg (26.0-34.0); MCHC 33.3 g/dL (31.0-37.0); MCV 91.5 fL (80.0-100.0); MEAN PLATELET VOLUME 9.9 fL (7.4-10.4); MONOCYTES 5.8 % (2-11); NEUTROPHILS 53.4 % (40-80); RBC 2.36 10x6/uL (4.00-5.40); RDW 17.4 % (11.5-14.5)
[2016-12-02 04:06] LABS: HEMOGLOBIN 7.2 g/dL (12-16); WBC 0.9 10x3/uL (4.8-10.8)
[2016-12-02 04:07] LABS: PLATELET COUNT 19 10x3/uL (130-400)
[2016-12-02 04:24] LABS: BILIRUBIN - TOTAL 3.6 mg/dL (0.2-1.3); CALCIUM 7.9 mg/dL (8.5-10.1); CARBON DIOXIDE 35.8 mmol/L (21.0-32.0); CREATININE - SERUM 2.6 mg/dL (0.6-1.3); PROTEIN - SERUM 10.7 g/dL (6.4-8.2); VANCOMYCIN - RANDOM 16.2 ug/mL (10.0-20.0)
[2016-12-02 04:26] LABS: ANION GAP 11.8 mmol/L (8-16); PHOSPHOROUS 2.8 mg/dL (2.5-4.9); POTASSIUM - SERUM 2.6 mmol/L (3.5-5.1)
--- NOTE | 2016-12-02 05:00 | NUR ---
PATIENT FEED INCREASED TO 20 @ 0230, RESIDUAL CHECK AND 18ML ASPIRATED AND RETURNED. FEEDING TO BE MAINTAINED AND CONTINUED OBSERVATION TO DETERMINE IF PATIENT IS TOLERATING FEEDING. PATIENT REPOSITIONED FOR COMFORT AND ORAL CARE PROVIDED, SUCTIONING PERFORMED. NO OTHER NEEDS AT THIS TIME, WILL CONTINUE TO MONITOR.
--- NOTE | 2016-12-02 09:30 | NUR ---
ORAL CARE AND TURNING PROVIDED. PT SEEMS TO HAVE A BLEEDING ULCER IN HER MOUTH OF SOME SORT, WILL NOTIFY MD. VSS AT THIS TIME, BED LOW AND LOCKED, WILL CONTINUE TO MONITOR.
--- NOTE | 2016-12-02 10:14 | NUR ---
NUTRITION MONITORING & EVAL PT REMAINS IN ISOLATION, ON VENT. PULMOCARE CURRENTLY AT 20 CC/HR. RECOMMEND GOAL RATE 35 CC/HR. RD FOLLOWING
--- NOTE | 2016-12-02 10:58 | NUR ---
REASSESSMENT COMPLETE, PLEASE SEE FLOW SHEETS FOR DETAILS. STOPPED BICARB PER DR GOLD, INCREASE NS TO 75 ML/HR PER DR AMATO. ORAL CARE AND TURNING PROVIDED. VSS AT THIS TIME, WILL CONTINUE TO MONITOR.
--- NOTE | 2016-12-02 11:52 | NUR ---
BM CLEANED UP, CASH CARE PROVIDED VIA SOAP AND WATER, VSS, WILL CONTINUE TO MONITOR.
--- NOTE | 2016-12-02 12:16 | NUR ---
RESIDUAL CHECK COMPLETE AND 215 ML ASPIRATED FROM OGT. THIS WAS PUT BACK AND FEEDING PAUSED TO ALLOW CONTENTS TO DIGEST, WILL RECHECK RESIDUAL BEFORE STARTING FEEDING AGAIN. DO NOTE PO POTASSIUM WAS GIVEN RECENTLY - SEE EMAR.
--- NOTE | 2016-12-02 15:00 | NUR ---
REASSESSMENT COMPLETE, PLEASE SEE FLOW SHEETS FOR DETAILS. ORAL CARE AND TURNING PROVIDED. BED LOW AND LOCKED. VSS, WILL CONTINUE TO MONITOR.
--- NOTE | 2016-12-02 17:00 | NUR ---
ORAL CARE AND TURNING PROVIDED. CHECKED RESIDUAL AND WAS AT 10ML, THIS WAS RETURNED. BED LOW AND LOCKED, VSS, WILL CONTINUE TO MONITOR.
--- NOTE | 2016-12-02 17:23 | NUR ---
SPOKE WITH PT SISTER ON PHONE, SHE REQUESTED A MED CODE FOR PT. VILLA GONSALES CM, WITNESSED THIS AND THE DOCTOR WAS PAGED TO RECIEVE ORDERS.
--- NOTE | 2016-12-02 17:27 | NUR ---
SPOKE WITH HIRAM MUÑIZ AND RECIEVED THE OKAY TO PUT IN ORDER UNDER DR DENNIS FOR MED CODE ONLY.
--- NOTE | 2016-12-02 19:00 | NUR ---
REPORT RECIEVED, SHIFT ASSESSMENT COMPLETE, PT IS SEDATED ON VENT, ON 30% FIO2 WITH 97% O2 SAT. RHONCHI/CRACKLES HEARD IN B/L UPPER LOBES, S1S2, CM-NSR, PATENT LEFT FA/RIGHT FA PIV...SEE FLOW SHEET...PATENT OGT WITH PULMOCARE INFUSING VIA PUMP, ABDOMEN IS DISTENDED AND FIRM WITH ACTIVE BS, PATENT F/C WITH DARK UOP, EDEMA NOTED IN ALL EXTREMETIES, ALL PPP, VSS
--- NOTE | 2016-12-02 21:15 | NUR ---
NO VISITORS AT THIS TIME, REPOSITIONED FOR COMFORT,
--- NOTE | 2016-12-02 21:31 | NUR ---
CM met Friday12/02/16 with the sister, MS Stratton, and the girlfriend to the son for 1.45 hrs. CM reviewed patient's present status. They had also spoke with the primary nurse. The sister states the patient is her only living sibling. They lost their 2 brothers and their parents. She stated the patient had been somewhat uncommunicative. They spoke but not often as per the patient's wishes. She had not discussed her illness w/ the son or the sister. They found out approximately 4 weeks ago during that hospitalization how ill she was. 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 CM advised the patient had been encouraged by the oncologist for approximately 6 months to consent to treatment. The patient had been set up w/ [facility] her previous discharge. She would not return the nurse's phone calls or answer the door. CM had spoke with Pankaj. She also had stated she would f/u w/ DR Barajas post discharge. She did not follow thru. CM discussed options. CM discussed Hospice as the patient had s/w a hospice nurse her previous admission. She declined hospice at that time. The sister is familiar w/ hospice. CM explained [facility] and comfort care. The sister had planned to meet w/ patient' son but missed the visitation hour as she departed [facility] too late. She was going to try again. She had s/w the CM regarding her concern about burial arrangements as she did not know the patient's financial situation. Cm had provided the contact names of 2 providers who work w/ families w/ limited resources. MS Stratton had spoken with [facility]. She stated she had obtained some information that assisted w/ her concerns. MS Stratton is reluctant to discontinue the ventilator. She questions if she would be doing the right thing. She does not want her sister to suffer. We discussed the patient's choice not to receive treatment and to decline help from health care providers when discharged. Discussed patient poor prognosis and multiple system failure. MS Stratton called today. She spoke w/ primary nurse, Bridget. She made a decision for Med [facility] only. Cm feels it would be helpful for DR Barajas to speak w/ the family again. The CM did advise MS Stratton that Dr Barajas would be the Hospice MD if the family decides on [facility] at some point. CM following to assist.
--- NOTE | 2016-12-02 23:26 | NUR ---
REASSESSMENT COMPLETE, NO CHANGES NOTED, PT RESTING AT THIS TIME, REPOSITIONED FOR COMFORT, ORAL CARE PROVIDED,
[2016-12-03] VITALS (23 sets, daily range): BP systolic 108–137; BP diastolic 69–90
--- NOTE | 2016-12-03 01:15 | NUR ---
COMPLETE BATH AND LINEN CHANGE, PT TOLERATED WELL,
--- NOTE | 2016-12-03 03:15 | NUR ---
REASSESSMENT COMPLETE, NO CHANGES NOTED, PT RESTING AT THIS TIME, VSS, WILL CON'T TO MONITOR
--- NOTE | 2016-12-03 05:00 | NUR ---
REPOSITIONED FOR COMFORT, ORAL CARE PROVIDED,
[2016-12-03 05:10] LABS: BASOPHILS 0 % (0.0-2.0); EOSINOPHILS 0.9 % (0-7); HEMATOCRIT 22.3 % (36.0-48.0); IMMATURE GRANULOCYTES 0.9 % (0-5); LYMPHOCYTES 32.1 % (15-50); MCH 31.4 pg (26.0-34.0); MCHC 33.2 g/dL (31.0-37.0); MEAN PLATELET VOLUME 11.9 fL (7.4-10.4); MONOCYTES 20.2 % (2-11); NEUTROPHILS 45.9 % (40-80); RBC 2.36 10x6/uL (4.00-5.40); RDW 17.4 % (11.5-14.5)
[2016-12-03 05:14] LABS: HEMOGLOBIN 7.4 g/dL (12-16); MCV 94.5 fL (80.0-100.0); PLATELET COUNT 14 10x3/uL (130-400); WBC 1.1 10x3/uL (4.8-10.8)
[2016-12-03 05:28] LABS: APTT 56.2 SECONDS (22.8-39.4); INR 1.65 (0.85-1.17); PROTIME 19.5 SECONDS (11.6-15.0)
[2016-12-03 05:42] LABS: ALBUMIN 0.8 g/dL (3.4-5.0); ANION GAP 10.8 mmol/L (8-16); BILIRUBIN - TOTAL 3.1 mg/dL (0.2-1.3); CALCIUM 8.2 mg/dL (8.5-10.1); CARBON DIOXIDE 35.3 mmol/L (21.0-32.0); CREATININE - SERUM 2.5 mg/dL (0.6-1.3); PHOSPHOROUS 2.6 mg/dL (2.5-4.9); POTASSIUM - SERUM 3.1 mmol/L (3.5-5.1); PROTEIN - SERUM 11.4 g/dL (6.4-8.2); VANCOMYCIN - RANDOM 22.5 ug/mL (10.0-20.0)
[2016-12-03 05:58] LABS: C-REACTIVE PROTEIN 11.9 mg/dL (0.0-0.9)
--- NOTE | 2016-12-03 10:00 | NUR ---
NUTRITION MONITORING & EVAL CHART REVIEWED. PT IN ISOLATION. TOLERATING PULMOCARE @ 20 CC/HR. NURSING REPORTS SEDATION OFF IN HOPES OF EXTUBATION TODAY. RD FOLLOWING
--- NOTE | 2016-12-03 11:50 | NUR ---
REV. ESTRELLA DOYLE FROM [facility]PT. CAME BY. HE IS [facility]. PT SON IS INCARCERATED. ASKS THAT WE GIVE HIM A CALL IF ANY CHANGE IN PT STATUS SO THAT HE CAN LET THE SON KNOW. HE CAN BE REACHED AT [phone] OFFICE, OR [phone] [facility].
--- NOTE | 2016-12-03 13:20 | NUR ---
PT CLEANED UP FROM LOOSE BOWEL MOVEMENT. PT HAS SMALL AMOUNT OF BLOOD IN STOOL. VISIBLE HEMERRHOID
--- NOTE | 2016-12-03 14:08 | NUR ---
RECHECK OF POTASSIUM READS LEVEL OF 3.6. NO FURTHER INTERVENTION NEEDED.
--- NOTE | 2016-12-03 16:01 | NUR ---
PT PLACED ON AIR OVERLAY MATTRESS. HAS HAD ANOTHER LOOSE STOOL. PT CLEANED UP AND PARTIAL LINEN CHANGE PROVIDED. WOUND NURSE HAS ASSESSED PT BUTTOCK/COCCYX AREA. NEW HEART-SHAPED MEPILEX APPLIED. PT HAS SMALL AMOUNT OF DARK PINK TINGED SECRETIONS IN ETT. PT SUCTIONED. ORAL SUCTIONING DOES NOT SHOW PINK, NEITHER DOES INLINE. THERE HAS BEEN SOME IN TUBING, BUT THERE WAS NOT THIS MUCH. WILL NOTIFY RESPIRATORY TO TAKE A LOOK.
--- NOTE | 2016-12-03 16:17 | NUR ---
WOUND CARE: PT WAS PLACED ON AIR OVERLAY/LOW AIR LOSS MATTRESS. NOTED THAT SHE HAS A 6CM X 9CM AREA COVERING SACRUM AND COCCYX THAT HAS SEVERAL STAGE 2 PRESSURE ULCERS. DIRECTLY OVER SACRUM IS AN UNSTAGEABLE PRESSURE INJURY APPROX 2CM X 1CM. AREA IS BEING PROTECTED WITH MEPILEX BORDER SACRAL DRESSING. SHE IS TURNED Q2H. SHE IS TOTAL CARE - INTUBATED, INCONTINENT B&B. HAS F/C. TUBE FEEDING. SKIN CARE IS BEING DONE DAILY AND NEEDED THROUGHOUT THE DAY NEEDED. RECOMMEND CONTINUING WITH MEPILEX. TURN Q2H - SKIN CARE/CHIP CARE DAILY AND NEEDED. WOUND CARE WILL CONTINUE TO MONITOR.
--- NOTE | 2016-12-03 16:36 | NUR ---
SON JAZMÍN CALLED FROM [place]. ASKED FOR UPDATE ON PT. SAYS PT HAD BEEN IN DENIAL ABOUT HER DIAGNOSIS AND THAT SHE WAS LEAVING IT IN GOD'S HANDS TO HEAL HER. HE ALSO SAID THAT HE TOOK HER TO AN APPOINTMENT AT DR HANNA'S OFFICE ON 11/12/16 FOR TREATMENT AND SHE HAD TO HAVE BLOOD ADMINISTRATION. HE IS TRYING TO GET A COMPASSIONATE RELEASE SO THAT HE CAN BE HOME TO TAKE CARE OF HER. TRIED TO LET HIM KNOW THAT SHE IS VERY SICK, BUT HE WAS NOT GRASPING THE SEVERITY OF HER ILLNESS WITH THE CANCER AND BEING ON THE VENTILATOR AT THIS TIME. HE ASKED THAT A MESSAGE BE LEFT ON THE CAPTAIN'S PHONE SHOULD ANYTHING CHANGE WITH THE PT. THE NUMBER IS [phone]
--- NOTE | 2016-12-03 19:30 | NUR ---
SHIFT ASSESSMENT COMPLETED AFTER REPORT RECEIVED. PT IS BEING SUPPORTED VIA VENTILATOR. SEDATION IS PROPOFOL. IV TO RIGHT F/A AND 2 TO LEFT F/A ALL FLUSH AND HAVE EXCELLENT BLOOD RETURN. PT IS TOTAL CARE AND IS ON AIR OVERLAY. DRESSING TO COCCYX/BUTTOCKS CDI. PT IS BEING MONITORED PER STANDARD ICU PROTOCOL WITH ALL ALARMS SET AND VERIFIED
--- NOTE | 2016-12-03 21:00 | NUR ---
NO VISITORS AT THIS TIME. PT BEING TURNED AND REPOSITIONED Q2H WITH EXTREMETIES ELEVATED ON PILLOWS OTHER PILLOWS USED TO PROVIDE SUPPORT AND RELIEVE PRESSURE. HEELS ARE FLOATED
--- NOTE | 2016-12-03 23:00 | NUR ---
SHIFT REASSESSMENT COMPLETED WITH NO SIGNIFICANT CHANGE.
[2016-12-04] VITALS (22 sets, daily range): BP systolic 111–147; BP diastolic 59–89
--- NOTE | 2016-12-04 01:00 | NUR ---
PT SLEEPING NO DISTRESS
--- NOTE | 2016-12-04 03:00 | NUR ---
SHIFT REASSESSMENT COMPLETED RESIDUAL CHECKED AT 5ML. RETURNED, FLUSHED AND PULMOCARE INCREASED TO 40 WHICH IS GOAL. NO SIGNIFICANT CHANGES NOTED SINCE SHIFT ASSESSMENT.
--- NOTE | 2016-12-04 03:37 | NUR ---
SAP BUSINESS ANALYST AT BEDSIDE FOR AM LABS
--- NOTE | 2016-12-04 04:00 | NUR ---
SIGNIFICANT WIEGHT CHANGE IN LAST 24 HOURS. THIS IS NOT DIRECTLY RELATED TO PT. THIS IS IN COORALATION WITH THE APPLICATION OF AN AIR OVERLAY ONTO THE BED.
[2016-12-04 05:24] LABS: ALBUMIN 0.8 g/dL (3.4-5.0); ANION GAP 12.7 mmol/L (8-16); BILIRUBIN - TOTAL 2.5 mg/dL (0.2-1.3); CALCIUM 8.2 mg/dL (8.5-10.1); CARBON DIOXIDE 31.4 mmol/L (21.0-32.0); CREATININE - SERUM 2.4 mg/dL (0.6-1.3); MAGNESIUM - SERUM 2.1 mg/dL (1.8-2.4); PHOSPHOROUS 2.9 mg/dL (2.5-4.9); POTASSIUM - SERUM 3.1 mmol/L (3.5-5.1); VANCOMYCIN - RANDOM 17.1 ug/mL (10.0-20.0)
[2016-12-04 06:53] LABS: APTT 54.1 SECONDS (22.8-39.4); INR 1.94 (0.85-1.17); PROTIME 22.2 SECONDS (11.6-15.0)
[2016-12-04 07:15] LABS: BASOPHILS 0.8 % (0.0-2.0); EOSINOPHILS 0.8 % (0-7); HEMATOCRIT 21.8 % (36.0-48.0); IMMATURE GRANULOCYTES 0.8 % (0-5); LYMPHOCYTES 22.7 % (15-50); MCH 29.7 pg (26.0-34.0); MCHC 31.2 g/dL (31.0-37.0); MCV 95.2 fL (80.0-100.0); MONOCYTES 15.2 % (2-11); NEUTROPHILS 59.7 % (40-80); RBC 2.29 10x6/uL (4.00-5.40); RDW 17.3 % (11.5-14.5)
[2016-12-04 07:18] LABS: PLATELET COUNT 8 10x3/uL (130-400); WBC 1.3 10x3/uL (4.8-10.8)
[2016-12-04 07:19] LABS: HEMOGLOBIN 6.8 g/dL (12-16)
--- NOTE | 2016-12-04 09:45 | NUR ---
PT ABDOMEN DISTENDED. TUBE FEEDINGS RUNNING AT 40ML/HR. RESIDUAL CHECKED AND FOUND TO BE 20ML. BOWEL SOUNDS ABSENT. TUBE FEEDINGS TO BE HELD AND WILL RECHECK RESIDUALS PER DR DENNIS REQUEST
--- NOTE | 2016-12-04 10:18 | NUR ---
NUTRITION MONITORING & EVAL CHART REVIEWED. PULMOCARE @ 40 CC/HR. REMAINS ON VENT. ISOLATION. WILL CONTINUE TO MONITOR PT PROGRESS. RD FOLLOWING
--- NOTE | 2016-12-04 13:08 | NUR ---
PT FOAMING AROUND HER MOUTH. SUCTIONED IN-LINE AND ORAL WELL. LOTS OF SECRETIONS. RESIDUALS HAVE BEEN CHECKED. ONLY ABLE TO PULL BACK 5ML. TUBE FEEDINGS RESTARTED. WILL MONITOR TO SEE HOW SHE TOLERATES
--- NOTE | 2016-12-04 13:40 | NUR ---
PT CLEANED UP FROM ANOTHER LOOSE BOWEL MOVEMENT. MEPILEX DRESSING STILL INTACT. BUTT PASTE APPLIED TO A REDDENED AREA JUST ABOVE ANUS.
--- NOTE | 2016-12-04 15:09 | NUR ---
NO FAMILY AT VISITATION AT THIS TIME. SISTER HAS NOT YET ARRIVED. WHEN WE SPOKE THIS MORNING SHE WAS GOING TO BE HERE AT 2:[address] HANNA WHEN SHE ARRIVES.
--- NOTE | 2016-12-04 15:57 | NUR ---
PT SISTER AISHA IS HERE. DR. HANNA HAS BEEN PAGED TO LET HIM KNOW SHE IS HERE.
--- NOTE | 2016-12-04 16:27 | NUR ---
SPOKE WITH DR MAYES. HE WILL BE HERE SHORTLY TO SPEAK WITH FAMILY
--- NOTE | 2016-12-04 18:02 | NUR ---
DR HANNA HAS SPOKE WITH SISTER. NOW SISTER WOULD LIKE TO SPEAK TO SON TO MAKE DECISION ON CARE. CALLED CAPTAIN BACH (?spelling) NUMBER THAT WAS PROVIDED TO ME YESTERDAY AND LEFT A MESSAGE TO CALL ICU. SISTER HAS STEPPED OUT FOR A FEW MINUTES TO GET SOME AIR AT THIS TIME.
--- NOTE | 2016-12-04 18:26 | NUR ---
PT HAD LOOSE BOWEL MOVEMENT. CLEANED UP AND PARTIAL LINEN CHANGE PROVIDED. PT HAS HEAVY SECRETIONS, PINK TINGED. SUCTIONED ORAL AND INLINE.
--- NOTE | 2016-12-04 19:00 | NUR ---
SISTER IS BACK AT BEDSIDE. HAVE NOT HEARD FROM SON AT THIS POINT. WILL PASS ALONG TO NEXT SHIFT WE ARE AWAITING TO SPEAK TO HIM. HE AND MRS UNRULY (PT SISTER) NEED TO SPEAK AND MAKE DECISION REGARDING CARE.
--- NOTE | 2016-12-04 19:00 | NUR ---
RECEIVED PATIENT IN BED WITH EYES CLOSED ON VENT, ASSESSMENT COMPLETED PER FLOWSHEET. PATIENT IS SEDATED AND UNABLE TO ASSESS LOC. EYES PERRLA @ 3MM WITH BRISK RESPONSE, YELLOW DRAINAGE NOTED IN R OUTER EYE. ETT/OGT 7.5 @ 23CM NOTED, PULMOCARE @ 40ML/HR RUNNING. S1/S2 NOTED WITH PATIENT SINUS TACHYCARDIA ON TELEMETRY. VENT @ 30%, R-10, V-600, P-5, SUPP-15. CRACKLES AND RHONCHI NOTED THROUOUGHT ALL ESTRADA, SLIGHTLY DIMINISHED LOWER. ABDOMEN IS DISTENDED AND SOFT, NON-TENDER TO PALPATION. BOWEL SOUNDS ABSENT X4. CASH SECURED IN PLACE, DARK CONCENTRATED URINE NOTED IN COLLECTION BAG. 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 ALL PULSES PALPABLE WITH ON-TENTING TURGOR NOTED. ALL VSS WITH NO OTHER NEEDS AT THIS TIME, WILL CONTINUE TO MONITOR.
--- NOTE | 2016-12-04 19:50 | NUR ---
SISTER NOW LEAVING. STILL NO WORD FROM JAZMÍN. MRS TOLLIVER DOES NOT WANT TO SEE HER SISTER SUFFERING. SHE BELIEVES SHE IS IN PAIN AND DOES NOT WANT HER TO BE LIKE THAT. DOES WANT TO GIVE SON JAZMÍN AN OPPORTUNITY TO WEIGH IN ON DECISION, SO DOES NOT WANT TO MAKE FINAL DECISION FOR HOSPICE TONIGHT, BUT WANTS JAZMÍN TO KNOW THAT IS WHAT SHE THINKS IS BEST. ASKS THAT WE TRY TO REACH JAZMÍN IN THE MORNING, AND THEN WOULD LIKE TO BE CALLED LATER TOMORROW TO MOVE AHEAD WITH PLANS.
--- NOTE | 2016-12-04 21:00 | NUR ---
NO VISITORS AT THIS TIME, PATIENT REMAINS IN BED RESTING WITH EYES CLOSED ON VENT. ORAL CARE/SUCTIONING PROVIDED AND PATIENT REPOSITIONED FOR COMFORT. ALL VSS AND WILL CONTINUE TO MONITOR.
--- NOTE | 2016-12-04 23:00 | NUR ---
REASSESSMENT COMPLETE PER FLOWSHEET, PATIENT RESTING IN BED WITH EYES CLOSED ON VENT. VENT SETTINGS UNCHANGED FROM PREVIOUS ASSESSMENT, OXYGEN SAT 96%. BREATHING IS REGULAR AND SHALLOW, CRACKLES AND RHONCHI NOTED THROUGHOUT ALL ESTRADA. ORAL CARE/SUCTIONING PROVIDED, THICK PINK/RED SECRETIONS SUCTIONED. PATIENT REPOSITIONED FOR COMFORT, BED BATH/LINEN CHANGE PERFORMED. ALL VSS AND WILL CONTINUE TO MONITOR.
[2016-12-05] VITALS (25 sets, daily range): BP systolic 105–137; BP diastolic 66–84
--- NOTE | 2016-12-05 01:00 | NUR ---
PATIENT RESTING IN BED WITH EYES CLOSED ON VENT, SETTINGS REMAIN UNCHANGED FROM LAST ASSESSMENT. CRACKLES NOTED THROUGHOUT ALL ESTRADA WITH SLIGHTLY DIMINISHED LOWER, BREATHING IS SHALLOW. ORAL CARE/SUCTIONING PROVIDED WITH THICK RED/PINK SECRETIONS REMOVED, PATIENT REPOSITIONED FOR COMFORT. ALL VSS AND WILL CONTINUE TO MONITOR.
--- NOTE | 2016-12-05 03:07 | NUR ---
REASSESSMENT COMPLETE PER FLOWSHEET, PATIENT RESTING IN BED WITH EYES CLOSED ON VENT. BREATHING IS SHALLOW AND REGULAR, CRACKLES NOTED THROUGHOUT ALL LOBES WITH RHONCHI NOTED BILATERAL UPPER. ORAL CARE/SUCTIONING PROVIDED, THICK RED/PINK SECRETIONS REMOVED. BED BATH/LINEN CHANGE PERFORMED, PATIENT HAD DIARRHEA BM IN BED. PATIENT REPOSITIONED FOR COMFORT, IV TUBING CHANGED. ALL VSS AND WILL CONTINUE TO MONITOR.
[2016-12-05 05:09] LABS: BASOPHILS 0 % (0.0-2.0); EOSINOPHILS 0.8 % (0-7); HEMATOCRIT 21.8 % (36.0-48.0); IMMATURE GRANULOCYTES 6.7 % (0-5); LYMPHOCYTES 31.9 % (15-50); MCH 30.4 pg (26.0-34.0); MCHC 31.7 g/dL (31.0-37.0); MEAN PLATELET VOLUME 10.7 fL (7.4-10.4); MONOCYTES 17.6 % (2-11); RBC 2.27 10x6/uL (4.00-5.40); RDW 17.8 % (11.5-14.5)
[2016-12-05 05:12] LABS: INR 1.87 (0.85-1.17); PROTIME 21.5 SECONDS (11.6-15.0)
[2016-12-05 05:19] LABS: WBC 1.2 10x3/uL (4.8-10.8)
[2016-12-05 05:20] LABS: HEMOGLOBIN 6.9 g/dL (12-16); PLATELET COUNT 7 10x3/uL (130-400)
[2016-12-05 05:44] LABS: ALBUMIN 0.7 g/dL (3.4-5.0); ANION GAP 14.3 mmol/L (8-16); BILIRUBIN - TOTAL 2.02 mg/dL (0.2-1.3); C-REACTIVE PROTEIN 11.6 mg/dL (0.0-0.9); CALCIUM 8.1 mg/dL (8.5-10.1); CARBON DIOXIDE 27.9 mmol/L (21.0-32.0); CREATININE - SERUM 2.5 mg/dL (0.6-1.3); PHOSPHOROUS 3.2 mg/dL (2.5-4.9); POTASSIUM - SERUM 3.2 mmol/L (3.5-5.1); PROTEIN - SERUM 11.4 g/dL (6.4-8.2); VANCOMYCIN - RANDOM 12.9 ug/mL (10.0-20.0)
--- NOTE | 2016-12-05 07:30 | NUR ---
ASSESSMENT COMPLETE. PT SEDATED, OPENS EYES ON VENT. DOES NOT FOLLOW COMMANDS. S1S2 NOTED, RADIAL AND PEDAL PULSES PALP. NSR TO SINUS TACHYCARDIA. SEE FLOWSHEET FOR VENT SETTINGS. HYPOACTIVE BOWEL SOUNDS X4. RESIDUAL 0. PULMOCARE AT 40ML/HR. PLACEMENT CHECKED VIA AIR INJECTION. GENERALZED WEAKNESS. GENERALZED EDEMA. SHE DOES WAKE UP, OPEN EYES AND LOOK AROUND THE ROOM, BUT DOES NOT FOLLOW VOICE. SCD'S ON. SEE FLOWSHEET FOR SKIN ASSESSMENT. LAC AND RF PIV. SEE IV FLOWSHEET.
--- NOTE | 2016-12-05 09:00 | NUR ---
NO FAMILY AT BEDSIDE OR CALLS AT THIS TIME
--- NOTE | 2016-12-05 10:27 | NUR ---
I RECEIVED A T/C THIS AM FROM CAPTAIN BACH AT [facility]. HE WAS REQUESTING INFORMATION ABOUT INMATE, JAZMÍN LEOS. HE STATED HE HAD A MESSAGE FOR JAZMÍN TO CALL US. HE STATED THAT HE WILL ALLOW JAZMÍN TO PHONE VARUN TOLLIVER, HIS AUNT. SHE WANTS TO TALK WITH HIM ABOUT HOSPICE BEFORE SHE MAKES THE DECISION. CAPTAIN BACH STATED THEY WOULD BRING JAZMÍN TO THE HOSPITAL TO SEE HIS MOTHER TODAY. I HAVE ASKED THEY ENTER THRU THE BACK DOOR SINCE HE WILL BE RESTRAINED. CAPTAIN BACH WILL CALL ME BEFORE THEY BRING THE PATIENT SO I AM ABLE TO FACILITATE THE VISIT. CM TO FOLLOW.
--- NOTE | 2016-12-05 11:15 | NUR ---
REASSESSMENT COMPLETE, SEE FLOWSHEET FOR DETAILS. MINIMAL CHANGES
--- NOTE | 2016-12-05 13:00 | NUR ---
BATH GIVEN. INCONTINENT OF LIQUID BROWN STOOL. COMPLETE LINEN CHANGE.
--- NOTE | 2016-12-05 14:46 | NUR ---
[facility] GUARDS BROUGHT PATIENT'S SON, JAZMÍN, TO SEE HIS MOTHER. HE AND HIS AUNT VARUN ARE IN AGREEMENT FOR HOSPICE CARE. [facility] HAS BEEN CONSULTED FOR [facility]. CM TO FOLLOW.
--- NOTE | 2016-12-05 15:35 | NUR ---
REASSESSMENT COMPLETE, SEE FLOWSHEET FOR DETAILS.
--- NOTE | 2016-12-05 17:33 | NUR ---
PT CALM ON VENT, SEDATED ON VENT. DOES NOT INTENTIONALLY MAKE EYE CONTACT
--- NOTE | 2016-12-05 19:00 | NUR ---
RECEIVED PATIENT IN BED WITH EYES CLOSED ON VENT, ASSESSMENT COMPLETE PER FLOWSHEET. PATIENT SEDATED BUT RESPONDS TO PAINFUL STIMULI, CAN OPEN EYES SPONTANEOUSLY BUT DOES NOT APPEAR TO TRACK. EYES PERRLA @ 3MM WITH BRISK RESPONSE, SCLERA IS WHITE AND CLEAR. ETT/OGT 7.5/23CM NOTED WITH PULMOCARE @ 40ML/HR INFUSING. S1/S2 NOTED WITH PATIENT NSR ON TELEMETRY BUT FREQUENT PERIODS OF SINUS TACHYCARDIA. BREATHING IS VENT R-10, V-600, P-5, SUPP-10 WITH CRACKLES NOTED BILATERAL UPPER AND DIMINISHED LOWER. ABDOMEN IS DISTENDED AND SOFT, NON-TENDER TO PALPATION WITH BOWEL SOUNDS HYPOACTIVE X4. CASH SECURED IN PLACE WITH DARK CONCENTRATED URINE NOTED IN COLLECTION BAG. PASSIVE ROM ALL EXTREMITIES WITH MODERATE WEAKNESS NOTED. UNSTAGEABLE PRESSURE ULCER NOTED JUST ABOVE COCCYX ON BUTTOCKS, ESCHAR NOTED SURROUNDED BY NON-BLANCHABLE TISSUE. MEASURED 9CM X 9CM X 0MM, CLEANED AREA AND COVERED WITH MEPILEX DRESSING. 20G PIV NOTED L AC/L FA, PATENT WITH FLUIDS INFUSING. PATIENT REPOSITIONED FOR COMFORT, ORAL CARE AND SUCTIONING PROVIDED. NO OTHER NEEDS AT THIS TIME, ALL VSS AND WILL CONTINUE TO MONITOR.
--- NOTE | 2016-12-05 21:00 | NUR ---
NO VISITORS AT THIS TIME, PATIENT RESTING IN BED WITH EYES CLOSED ON VENT. PATIENT REPOSITIONED FOR COMFORT, ORAL CARE/SUCTIONING PROVIDED. NO FURTHER NEEDS AT THIS TIME, ALL VSS AND WILL CONTINUE TO MONITOR.
--- NOTE | 2016-12-05 23:00 | NUR ---
REASSESSMENT COMPLETE PER FLOWSHEET, PATIENT LAYING IN BED WITH EYES CLOSED ON VENT. VENT SETTINGS ARE UNCHANGED FROM PREVIOUS ASSESSMENT, CRACKLES AND RHONCHI NOTED BILATERAL UPPER WITH DIMINISHED LOWER. ORAL CARE/SUCTIONING PROVIDED, THICK PINK SECRETIONS REMOVED. PATIENT REPOSITIONED FOR COMFORT, PULMOCARE TUBING REPLACED. NO FURTHER NEEDS AT THIS TIME, ALL VSS AND WILL CONTINUE TO MONITOR.
[2016-12-06] VITALS (9 sets, daily range): BP systolic 114–190; BP diastolic 69–108
--- NOTE | 2016-12-06 00:45 | NUR ---
SPOKE TO PATIENT SON ABOUT CURRENT STATUS. CLARIFIED PURPOSE OF HOSPICE AND PROVIDED BRIEF OVERVIEW OF CARE PROVIDED. SON STATED HE HAD SPOKEN WITH HOSPICE NURSE EARLIER, BUT STILL HAD SOME QUESTIONS. SON REQUESTED TO SPEAK WITH PHYSICIAN IN AM TO CLARIFY QUESTIONS HE HAD REMAINING. WILL LEAVE MESSAGE FOR ONCOMING NURSE TO CONTACT SON IN AM. ORAL CARE/SUCTIONING PROVIDED, PATIENT REPOSITIONED FOR COMFORT. ALL VSS AND WILL CONTINUE TO MONITOR.
--- NOTE | 2016-12-06 03:00 | NUR ---
REASSESSMENT COMPLETE PER FLOWSHEET, PATIENT RESTING IN BED WITH EYES CLOSED ON VENT. VENT SETTINGS ARE UNCHANGED FROM PREVIOUS ASSESSMENT, BREATHING IS RYTHMIC AND REGULAR. RADIOLOGY PERFORMED KUB THIS AM, AWAITING RESULTS. ORAL CARE/SUCTIONING PROVIDED, PATIENT REPOSITIONED FOR COMFORT. NO FURTHER NEEDS AT THIS TIME, ALL VSS AND WILL CONTINUE TO MONITOR.
--- NOTE | 2016-12-06 05:20 | NUR ---
PATIENT HAD BM IN BED, FULL BED BATH/LINEN CHANGE PERFORMED. ORAL CARE/SUCTIONING PROVIDED, THICK PINK SECRETIONS REMOVED. PATIENT REPOSITIONED FOR COMFORT, DRESSING CHANGED ON SACRAL PURESSURE ULCER. ALL VSS WITH NO FURTHER NEEDS AT THIS TIME, WILL CONTINUE TO MONITOR.
[2016-12-06 05:59] LABS: BASOPHILS 0 % (0.0-2.0); EOSINOPHILS 0.9 % (0-7); IMMATURE GRANULOCYTES 0.9 % (0-5); LYMPHOCYTES 35.5 % (15-50); MCH 30.4 pg (26.0-34.0); MCHC 31.8 g/dL (31.0-37.0); MCV 95.7 fL (80.0-100.0); MONOCYTES 0.9 % (2-11); NEUTROPHILS 61.8 % (40-80); RBC 2.07 10x6/uL (4.00-5.40)
[2016-12-06 06:11] LABS: HEMOGLOBIN 6.3 g/dL (12-16); WBC 1.1 10x3/uL (4.8-10.8)
[2016-12-06 06:12] LABS: HEMATOCRIT 19.8 % (36.0-48.0); PLATELET COUNT 5 10x3/uL (130-400)
[2016-12-06 06:26] LABS: ALBUMIN 0.7 g/dL (3.4-5.0); ANION GAP 15.1 mmol/L (8-16); BILIRUBIN - TOTAL 1.6 mg/dL (0.2-1.3); CALCIUM 8.3 mg/dL (8.5-10.1); CARBON DIOXIDE 24.1 mmol/L (21.0-32.0); CREATININE - SERUM 2.4 mg/dL (0.6-1.3); PHOSPHOROUS 3.8 mg/dL (2.5-4.9); POTASSIUM - SERUM 3.2 mmol/L (3.5-5.1); PROTEIN - SERUM 11.5 g/dL (6.4-8.2)
--- NOTE | 2016-12-06 07:00 | NUR ---
PT VENTILATED AND SEDATED. DIPRIVAN AT 45 MCG/KG/MIN. EDEMATOUS IN BOTH UPPER AND LOWER EXTREMITIES. PERIPHERAL IV AT LEFT AC AND LOWER LEFT FOREARM. NS AND DIPRIVAN RUNNING AT AC, FOREARM IS SALINE LOCKED. WRIST RESTRAINTS REMOVED AND SKIN INSPECTED, SCD'S REMOVED AND SKIN INSPECTED. PT REPOSITIONED TO LEFT SIDE. DRESSING AT BUTTOCK/COCCYX INTACT. URINE IN CASH CATHETER IS DARK. PT HAS AIR OVERLAY MATTRESS. VENTILATOR SET AT A/C, 10RR, 600, PEEP 5 AND PRESSURE SUPPORT OF 10. HAS VISIBLE BLEEDING AT MOUTH, SUCTION PROVIDED. ORAL CARE PROVIDED.
--- NOTE | 2016-12-06 10:28 | NUR ---
NUTRITION MONITORING & EVAL CHART REVIEWED. TUBE FEEDS DC'D, NOTE PROBABLE HOSPICE. RD FOLLOWING
--- NOTE | 2016-12-06 13:33 | NUR ---
SISTER MRS. TOLLIVER AT BEDSIDE AT THIS TIME. AWAITING HOSPICE NURSE.
--- NOTE | 2016-12-06 13:50 | NUR ---
HOSPICE NURSE HERE NOW
--- NOTE | 2016-12-06 15:08 | NUR ---
PATIENT'S FAMILY IS HERE AND HER SISTER HAS SIGNED LEGALS FOR HOSPICE CARE. HER FAMILY IS GOING TO GET SOMETHING TO EAT AND WILL RETURN AROUND 1530 FOR TERMINAL EXTUBATION.
--- NOTE | 2016-12-09 15:45 | EC ---
PATIENT:DAVID LEOS DATE OF SERVICE: 11/27/16 SEX: F MEDICAL RECORD: [id number] DATE OF : [birth year] LOCATION:[facility] AGE OF PATIENT: 66 ADMISSION DATE: 11/27/16 REFERRING PHYSICIAN: INTERPRETING PHYSICIAN: CAROLIN PULLIAM M.D. ECHOCARDIOGRAM REPORT ECHO CHARGES 4 ECHO COMPLETE CLINICAL DIAGNOSIS: CHF ECHOCARDIOGRAPHIC MEASUREMENTS (adult normal given) AC root (d.<3.7cm) 3.1 LV Septum d (<1.2 cm> 1.7 Valve Excursion 1.4 LV Septum (systole) 2.1 Left Atria (s.<4.0cm> 3.8 LVPW d(<1.2cm) 1.7 RV (d.<2.3cm) 2.5 LVPW (sytole) 2.1 LV diastole(<5.6CM) 4.7 MV E-F(>70mm/sec) LV systole 2.8 LVOT Diameter 1.8 MV exc.(>10mm) Est.ejection fraction (50-75%) Pericardial Effusion N DOPPLER: LVIT A 65.0 E 100 LA RVSP 74.0 LVOT 153 AOP1/2T 503.0 Asc. Ao 221 RVOT 69.0 RA PA 106 AV Gradient Peak 20.0 AV Mean 8.3 AV Area 2.0 MV Gradient Peak 4.8 MV Mean 2.1 MV Area COMMENTS: Floor Cleaner: Georges SERRANOOE Lehr Attendant:June Pulliam TAPE# PACS DATE OF SERVICE: 12/02/2016 REFERRING PHYSICIAN: Saad Swenson MD INDICATION: Congestive heart failure. DESCRIPTION: Left ventricle demonstrates left ventricular hypertrophy. No wall motion abnormalities are seen. Estimated ejection fraction is 55%. Mitral valve is structurally normal. There is mild regurgitation noted. Left atrium is normal in size. The aortic valve leaflets are thickened. The noncoronary ECHOCARDIOGRAM REPORT [id number] DAVID LEOS cusp is heavily calcified as well. The peak gradient across the valve is 20 mmHg. Right ventricle is normal in size and function. Tricuspid valve is normal. There is moderate to severe regurgitation seen. Right ventricular systolic pressure is elevated at 74 mmHg. There is no pericardial effusion noted. IMPRESSION: 1. Left ventricular hypertrophy with preserved ejection fraction of 55%. 2. Moderate mitral regurgitation. 3. Mild aortic stenosis. 4. Moderate tricuspid regurgitation with pulmonary hypertension. TRANSINT:[id number] Voice Confirmation ID: [id number] DOCUMENT ID: [id number] CAROLIN PULLIAM M.D. at 1545 CC: [id number] DICTATION DATE: 12/02/161704 COVERSTITCH BINDER: 12/02/162003 DIS IN 12/06/16 [facility] [address] [place] [address]
--- NOTE | 2016-12-11 09:13 | CN ---
PATIENT NAME:DAVID LEOS MEDICAL RECORD: [id number] : 48 LOCATION:[id number] ADMIT DATE: 11/27/16 ACCOUNT: [id number] CONSULTING PHYSICIAN: JOHANNA QUINTANILLA MD REFERRING PHYSICIAN: EDISON WALTERS MD DATE OF CONSULTATION: 11/29/2016 Pulmonary Consultation CONSULT REQUESTING PHYSICIAN: Memo Yan DO REASON FOR CONSULTATION: Acute septic shock, acute hypoxic hypercarbic respiratory failure, and metabolic acidosis. HISTORY OF PRESENT ILLNESS: Mr. Leos is a 66-year-old -[place] female who has advance multiple myeloma, seen by Dr. Barajas. She is refusing the treatment for multiple myeloma. She was admitted to the hospital for pain management. Last night, the patient becomes very lethargic and the ABG and blood workup showed she is on septic shock and respiratory failure and the patient was electively intubated. Now, the patient is orally intubated and sedated. The history was taken by reviewing the patient's note and talking to the nursing staff. REVIEW OF SYSTEMS: Detailed is not obtainable. PAST MEDICAL HISTORY: 1. Multiple myeloma. 2. Diabetes mellitus. 3. Hypertension. PAST SURGICAL HISTORY: Hysterectomy. ALLERGIES: SHE IS ALLERGIC TO PENICILLIN ALVARADO AMLODIPINE, CAFFEINE, DICLOFENAC, NAPROXEN, PREDNISONE AND TEMAZEPAM. PRESENT MEDICATIONS: On [employer] was reviewed. PERSONAL HISTORY AND SOCIAL HISTORY: The patient is a current everyday smoker. She is a nondrinker. FAMILY HISTORY: Not known. PHYSICAL EXAMINATION: GENERAL: The patient is orally intubated and sedated. VITAL SIGNS: The blood pressure is 123/74, pulse is 113, respiration is 26, temperature is 101.3, and SpO2 is 97% on assist control 60% oxygen. HEENT: Conjunctiva is pale. Sclerae are not icteric. NECK: Supple. No JVD. CHEST: There are bilateral crackles. No wheezing. HEART: Rate and rhythm is regular, normal sound, no murmur. ABDOMEN: Soft, bowel sounds present. No hepatosplenomegaly. RECTAL: Deferred. EXTREMITIES: No cyanosis, no clubbing, no pedal edema. SKIN: Warm, normal turgor. CENTRAL NERVOUS SYSTEM: The patient is orally intubated and sedated. CONSULT REPORT [id number] DAVID LEOS CHEST RADIOGRAPH: Left upper lobe, right lower lobe and left lower lobe infiltrate. There is improvement in the right lower lobe infiltrate. OTHER LABORATORY DATA: CBC: WBC is 0.4, hemoglobin 6.4, hematocrit is 21.3, and the platelet count is 18. Chemistry: Sodium is 139, potassium is 3, bicarbonate is 18.5, BUN is 18, creatinine 2.3. AST is 83, ALT is 75, alkaline phosphatase is 41, the albumin is 1. ABG: The pH is 7.19, pCO2 of 36.2, the pO2 was 53, and the bicarb was 14. This was done on the 6 liter nasal cannula. IMPRESSION: 1. Acute hypoxic hypercapnic respiratory failure. 2. Mixed acid base disorder, respiratory, metabolic acidosis consistent with lactic acidosis. 3. Septicemia. 4. Multiple myeloma. 5. Multilobar pneumonia. 6. Pancytopenia consistent with: A. Leukopenia. B. Anemia. C. Thrombocytopenia. 7. Elevated LFT, most likely secondary to shock liver. 8. Acute renal failure secondary to acute tubular necrosis secondary to shock. PLAN: 1. The patient is already intubated last night as per discussion with the nurses. 2. We will follow the vent bundle protocol, deep venous thrombosis and stress ulcer prevention. 3. Start her on vancomycin, cefepime and Levaquin to cover for methicillin-resistant Staphylococcus aureus as well as Gram-negative rods, consider the patient pancytopenia. 4. We will consult Dr. Johnson. 5. The patient has transfused 2 units last night, but now the prognosis is very poor and Dr. Barajas want the patient to be in hospice care. I will leave the replacement therapy to Dr. Barajas. 6. Follow up labs and chest radiograph. The prognosis is very poor. Dr. Yan, once again thanks for involving me in the care of Ms. Leos. The critical care time is 45 minutes. TRANSINT:[id number] Voice Confirmation ID: [id number] DOCUMENT ID: [id number] JOHANNA QUINTANILLA MD at 0913 CC: EDISON WALTERS MD [id number] DICTATION DATE: 11/29/16 1025 AUDIO RECORDING ENGINEER: 11/29/16 1059 DIS IN 12/06/16 [facility] [address] [place] [address]
== END 2016-12-06 16:15 | disposition hospice, inpatient (51) | DRG 840 ==
LOC: D.ICU 15:19 → D.MS 15:19 → D.ICU 11-29 01:06
PROVIDERS: Family Medicine; Internal Medicine Nephrology; Internal Medicine Pulmonary Disease; ADMIT Family Medicine
PROC: 5A1955Z Respiratory Ventilation, Greater than 96 Consecutive Hours (ICD-10-PCS; principal; 2016-11-29)
PROC: 0BH17EZ Insertion of Endotracheal Airway into Trachea, Via Natural or Artificial Opening (ICD-10-PCS; 2016-11-29)
DX: C91.10 Chronic lymphocytic leukemia of B-cell type not having achieved remission (principal); A41.9 Sepsis, unspecified organism; J18.9 Pneumonia, unspecified organism; N17.0 Acute kidney failure with tubular necrosis; K72.00 Acute and subacute hepatic failure without coma; J96.02 Acute respiratory failure with hypercapnia; R65.21 Severe sepsis with septic shock; F17.203 Nicotine dependence unspecified, with withdrawal; D61.818 Other pancytopenia; G89.3 Neoplasm related pain (acute) (chronic); C90.00 Multiple myeloma not having achieved remission; E86.0 Dehydration; K59.00 Constipation, unspecified; E11.9 Type 2 diabetes mellitus without complications; K21.9 Gastro-esophageal reflux disease without esophagitis

== ENCOUNTER 2016-12-06 16:00 | Inpatient (IN) | payer OTHER ==
[~2016-12-06] VITALS: Ht 165.1 cm; Wt 83.6 kg
[2016-12-06 16:30] VITALS: BP 139/82
--- NOTE | 2016-12-06 17:18 | NUR ---
PT EXTUBATED AT 1435. 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 SISTER AND NEPHEW ARE NOW AT BEDSIDE. HOSPICE NURSE ROSALIA AND LAB TECH DU ALSO AT BEDSIDE WITH FAMILY.
[2016-12-06 19:19] VITALS: BP 139/82; Ht 165.1 cm; Wt 83.6 kg
--- NOTE | 2016-12-06 20:13 | NUR ---
[phone]. SISTER AISHA HAS ALREADY MET WITH THEM.
--- NOTE | 2016-12-06 20:30 | NUR ---
PT HAS BEEN ASSESSED AND NOTED. ALSO CLEANED PT'S MOUTH AND SUCTIONED. B/P REMAINS STABLE WITH HR UPPER 80'S. WILL CONTINUE TO MONITOR
--- NOTE | 2016-12-07 00:30 | NUR ---
PT MOVED TO MED TWO 2105. REPORT CALLED TO BIBIANA ON MED 2. MOVED PT IN HER BED TO 2105.
--- NOTE | 2016-12-07 00:30 | NUR ---
ORDERS TO MOVE PT TO MED TWO 2105. REPORT CALLED TO BIBIANA ON MED TWO. MOVED THE PT IN BED TO ROOM 2105.
--- NOTE | 2016-12-07 01:04 | NUR ---
REPORT RECEIVED. WENT TO ICU TO TRANSFER PT, UPON ENTERING NEW ROOM WITH PT THE OBSERVATION WAS MADE THAT THE PT WAS NO LONGER BREATHING. AUSCULTATION OF LUNGS AND HEART REVEALED NO SOUNDS. CALLS WERE PLACED TO HOSPICE NURSE AND DR HANNA
--- NOTE | 2016-12-07 01:07 | NUR ---
RECEIVED CALL BACK FROM DR HENDERSON NURSE. INFORMED OF SITUATION. STATED THAT SHE WOULD CALL DR HANNA AND HAVE HIM CALL ER PHYSICIAN
--- NOTE | 2016-12-07 01:20 | NUR ---
DR SANCHEZ FROM ER IN ROOM TO PRONOUNCE.
--- NOTE | 2016-12-07 02:32 | NUR ---
PT OFF FLOOR VIA [facility]. 29ML MORPHINE WASTED FROM [employer]. PAPERWORK COMPLETED AND FAXED TO [facility].
--- NOTE | 2016-12-10 16:44 | NUR ---
Per CMS protocol, Restraint report logged into data base.
== END 2016-12-07 02:32 | DRG 951 ==
LOC: D.SDCHOLD 16:00 → D.ICU 16:18 → D.M2 12-07 00:50
PROVIDERS: ADMIT Legal Medicine
DX: Z51.5 Encounter for palliative care (principal)